=== PATIENT | male | born 1935 | race Caucasian/White ===

== ENCOUNTER 2021-01-19 14:25 | Emergency (ER) | payer MEDICARE, OTHER ==
[~2021-01-19] VITALS: Ht 170.2 cm; Wt 81.4 kg
[~2021-01-19 14:25] MED LIST: AMLO2.5T5 PO; ASCO500T9 PO; ASPI81TA45 PO; ATOR40TA78 PO; CYAN100074 PO; DOCU50LI24 PO; HYDR-3341 PO; METO25TA35 PO; METO50TA82 PO; OMEG100023 PO; PARO10TA3 PO; PARO20TA4 PO; PSYL660P18 PO; TERA1CAP3 PO
[2021-01-19 14:28] VITALS: BP 150/123
[2021-01-19 15:06] LABS: BASOPHILS % (AUTO) 0 % (0-1); EOSINOPHILS % (AUTO) 0 % (1-7); LYMPHOCYTES % (AUTO) 11 % (22-44); MEAN CORPUSCULAR HEMOGLOBIN 31.1 pg (27.5-34.5); MEAN CORPUSCULAR HGB CONC 34.3 g/dL (33.2-36.2); MEAN PLATELET VOLUME 8.2 fL (7.4-10.4); MONOCYTES % (AUTO) 7 % (2-9); NEUTROPHILS % (AUTO) 82 % (42-75); PLATELET COUNT 237 x10^3/uL (130-400); RED BLOOD COUNT 4.34 x10^6/uL (4.38-5.82); RED CELL DISTRIBUTION WIDTH 13.5 % (9.4-14.8)
[2021-01-19] MEDS ORDERED: AMLO-211 PO (15:14)
--- NOTE | 2021-01-19 15:16 | NUR ---
BREAK RN: PT BROUGHT IN BY DAUGHTER FOR POSSIBLE SEIZURE. PER FAMILY PT WAS NOT ANSWERING PHONE THIS AM SO FAMILY CAME TO CHECK IN AND FOUND PT SITTING AT EDGE OF BEDREPEATING "OH GOSH OH GOSH". FAMILY FOUND STOOL IN ARMCHAIR WHICH IS NOT NORMAL FOR PT. PTS TONGUE VERY SWOLLEN FROM BEING BITTEN. PT UNSURE WHAT HAPPENED, HAS C.O DIZZINESS AND RLQ AND LLQ ABD PAIN. PT WITH BASELINE ASPHAGIA FROM PREVIOUS STROKE, ANSWERS ORIENTATION QUESTIONS BY WRITING IN THE AIR AND MAKING CORRECT SHAPES, WHICH IS BASELINE PER DAUGHTER. SEIZURE PRECAUTIONS IN PLACE AND PT CONNECTED TO LOGISTICS CLERK.
[2021-01-19 15:19] LABS: ALBUMIN 3.8 g/dL (3.4-5.0); ANION GAP 7 mmol/L (5-15); CALCIUM 8.7 mg/dL (8.5-10.1); CHLORIDE 109 mmol/L (98-107)
[2021-01-19 15:24] LABS: ALANINE AMINOTRANSFERASE 29 U/L (12-78); ALKALINE PHOSPHATASE 78 U/L (45-117); BILIRUBIN,TOTAL 0.5 mg/dL (0.2-1.0); CREATININE 2.82 mg/dL (0.7-1.3); TOTAL PROTEIN 7.9 g/dL (6.4-8.2); TROPONIN I < 0.015 ng/mL (0.000-0.045)
--- NOTE | 2021-01-19 16:34 | NUR ---
PT BACK FROM CT. PT PROVIDED URINE SAMPLE. UA COLLECTED AND SENT TO LAB.
[2021-01-19 16:45] LABS: MICROSCOPIC AUTO
--- NOTE | 2021-01-19 16:59 | NUR ---
ALL RESULTS ARE BACK AT THIS TIME. CHART UP FOR RECHECK.
[2021-01-19] MEDS ORDERED: ACETAMINOPHEN 500 MG TABLET PO ONE (18:30)
--- NOTE | 2021-01-19 18:35 | NUR ---
PT AND DAUGHTER WALKING DOWN HALLWAY PRIOR TO RECEIVING DC PAPERWORK. DAUGHTER STATES SHE WILL GIVE PT TYLENOL WHEN THEY GET TO THE CAR.
== END 2021-01-19 18:38 | disposition home or self-care (01) ==
LOC: ED 16:37
DX: S00.532A Contusion of oral cavity, initial encounter (principal); R56.9 Unspecified convulsions; R40.4 Transient alteration of awareness; I10 Essential (primary) hypertension; E78.5 Hyperlipidemia, unspecified; R51.9 Headache, unspecified; X58.XXXA Exposure to other specified factors, initial encounter; Y93.89 Activity, other specified; Y92.89 Other specified places as the place of occurrence of the external cause; Y99.8 Other external cause status
CPT/HCPCS: 36415; 70450; 72125; 80053; 81001; 84484; 85025; 93005; 99285